=== PATIENT | male | born 1935 | race Caucasian/White ===

== ENCOUNTER 2018-04-07 10:44 | Emergency (ER) | payer MEDICARE ==
--- NOTE | 2018-04-07 11:13 | Emergency Department Record ---
History of Present Illness - General Chief Complaint: Laceration(s) Stated Complaint: R HAND/CRUSHED FINGERS Time Seen by Provider: 04/07/18 10:54 Source: Patient Mode of Arrival: Ambulatory Limitations: No limitations - History of Present Illness Initial Commments: Pt from home with neighbor. Right hand dominate with crush injury to right middle and ring finger. Laceration to same digits on palmar surface. No other injury. Hx DM. Onset/Timin -: Minutes(s) Place: Home Context: Accidental Associated Symptoms: None Treatments Prior to Arrival: Other - [place] Coma Scale Eye Response: (4) Open spontaneously Motor Response: (6) Obeys commands Verbal Response: (5) Oriented [place] Total: 15 - Related Data Hx Tetanus Toxoid Vaccination: Yes Allergies Allergy/AdvReac Type Severity Reaction Status Date / Time No Known Drug Allergies Allergy Verified 04/30/15 12:43 Travel Screening - Travel/Exposure Within Last 30 Days Have you traveled within the last 30 days?: No Review of Systems Constitutional: Denies: Chills Respiratory: Denies: Cough, Dyspnea Cardiovascular: Denies: Chest pain Gastrointestinal: Denies: Abdominal pain Musculoskeletal: Reports: As per HPI Skin: Reports: As per HPI Neurological: Denies: Abnormal gait, Confusion Past Medical History - SOCIAL HISTORY Smoking Status: Former smoker Alcohol Use: None Drug Use: None - RESPIRATORY Hx Respiratory Disorders: No - CARDIOVASCULAR Hx Cardio Disorders: Yes Hx Heart Attack: Yes - NEURO Hx Neuro Disorders: No - GI Hx GI Disorders: No - Hx Genitourinary Disorders: Yes Hx Kidney Stones: Yes - ENDOCRINE Hx Endocrine Disorders: Yes Hx Diabetes: Yes Hx Thyroid Disease: Yes (hypo) - MUSCULOSKELETAL Hx Musculoskeletal Disorders: No - PSYCH Hx Psych Problems: No Family Medical History Any Significant Family History?: No Physical Exam - General General Appearance: Alert, Oriented x3, Cooperative Limitations: No limitations - Head Head exam: Atraumatic - Eye Eye exam: Normal appearance - ENT Ear exam: Normal external inspection Nasal Exam: Normal inspection - Respiratory Respiratory exam: Normal lung sounds bilaterally - Cardiovascular Cardiovascular Exam: Regular rate, Normal rhythm - GI/Abdominal GI/Abdominal exam: Soft, Normal bowel sounds - Extremities Extremities exam: Full ROM, Normal capillary refill, Tenderness Image of Hand: 1 - laceration and swelling. Lac to 3rd and 4th digit superficial no deep structures or FB. No tendon or N/V injury +STS 2 - sensation in tact distally, full ROM against resistance - Neurological Neurological exam: Alert, Normal gait, Oriented X3 Course Vital Signs 04/07/18 10:48 Temperature 97.5 F L Pulse Rate 68 Respiratory 18 Rate Blood Pressure 161/66 Pulse Ox 99 - Reevaluation(s) Reevaluation #1: 04/07/18 11:46 Seen and examined. XR reviewed - no FB or fX. Wound repaired without difficulty. Discussed DM and higher risk for wound infection. Will monitor closely and return if sings. SO in7-10 days Reevaluation #2: 04/07/18 11:49 PROCEDURE: Procedure Note: 2 laceration over the palmar of the right fingers #3 & 4, bleeding controlled. Wound was cleaned and prepped in sterile fashion, no residual FB identified on examination. Wound was anesthetized with 2 cc of 1% lido without epi locally with good anesthesia, and the laceration was repaired with 4-0 Prolene x 3 per finger - total 6 sutures placed - sutures in interrupted fashion. Patient tolerated the procedure well without complications. Tubex dressing applied. Good CMS distally following procedure. Medical Decision Making - Management Options MDM Management: No Additional Work-up Planned - Data Complexity MDM Data: X-Ray Ordered and/or Reviewed, Independent Visualization of Image, Tracing, or Specimen Disposition Disposition: Discharge Clinical Impression: Hand crush injury Qualifiers: Encounter type: initial encounter Laterality: right Qualified Code(s): S67.21XA - Crushing injury of right hand, initial encounter Laceration of finger of right hand without damage to nail Qualifiers: Encounter type: initial encounter Finger: ring finger Foreign body presence: without foreign body Qualified Code(s): S61.214A - Laceration without foreign body of right ring finger without damage to nail, initial encounter Disposition: Home, Self-Care Return To Work/School Note Provided: Yes Condition: (1) Good Instructions: Laceration (ED) Additional Instructions: sutures out in 7-10 days Watch closely for signs of infection. Forms: Patient Portal Access Quality - Quality Measures Quality Measures: N/A - Blood Pressure Screening Does Patient Have Any of the Following: Active Dx of HTN Blood Pressure Classification: Hypertensive Reading Systolic Measurement: 161 Diastolic Measurement: 66 Screening for High Blood Pressure: Patient Exclusion, Hx of HTN [[id number]]
--- NOTE | 2018-04-07 21:05 | RADIOLOGY REPORT ---
EXAM: HAND, RIGHT 3 VIEWS HISTORY: INJURY. TECHNIQUE: Three views of the right hand were performed. FINDINGS: No evidence of fracture or dislocation. There is degenerative change of the proximal and distal interphalangeal joint space. There is degenerative change of the radioulnar joint space and radiocarpal joint space. No radiopaque foreign body. Mild soft tissue swelling. IMPRESSION: SOFT TISSUE SWELLING. NO ACUTE PROCESS. JOB NUMBER: [id number] MTDD
== END 2018-04-07 12:11 | disposition home or self-care (01) ==
LOC: ER 10:44
DX: S67.21XA Crushing injury of right hand, initial encounter (principal); S61.214A Laceration without foreign body of right ring finger without damage to nail, initial encounter; S61.212A Laceration without foreign body of right middle finger without damage to nail, initial encounter; W24.0XXA Contact with lifting devices, not elsewhere classified, initial encounter; Y92.008 Other place in unspecified non-institutional (private) residence as the place of occurrence of the external cause; E11.9 Type 2 diabetes mellitus without complications; I10 Essential (primary) hypertension; Z87.891 Personal history of nicotine dependence; I25.2 Old myocardial infarction
CPT/HCPCS: 12001; 99283; 99284

== ENCOUNTER 2018-04-16 15:20 | Emergency (ER) | payer MEDICARE ==
--- NOTE | 2018-04-16 15:25 | Emergency Department Record ---
History of Present Illness - General Chief Complaint: Suture removal Stated Complaint: REMOVE STITCHES Time Seen by Provider: 04/16/18 15:22 Source: Patient Mode of arrival: Ambulatory Limitations: No limitations - History of Present Illness Initial Comments: 82 yo male presents for wound check and suture removal. He injured the palm surface of two fingers. Complaint: Suture/staple removal, Wound re-check -: Week(s) (1) Initial Visit For: Laceration Returns Today for: Staple/stitch removal, Wound recheck Symptoms Since Prior Visit: Improved Associated Symptoms: None - Related Data Previous Rx's Medication Instructions Recorded Cephalexin [Keflex] 500 mg PO TID #21 cap 04/16/18 Allergies Allergy/AdvReac Type Severity Reaction Status Date / Time No Known Drug Allergies Allergy Verified 04/30/15 12:43 Review of Systems Constitutional: Denies: Chills, Fever, Malaise, Weakness Eyes: Denies: Eye discharge ENT: Denies: Congestion, Throat pain Respiratory: Denies: Cough Musculoskeletal: Denies: Arthralgia, Joint swelling, Myalgia Skin: Denies: Change in color, Rash Neurological: Denies: Numbness, Tingling Psychiatric: Denies: Anxiety Hematological/Lymphatic: Denies: Easy bleeding, Easy bruising Past Medical History - SOCIAL HISTORY Smoking Status: Former smoker Drug Use: None - RESPIRATORY Hx Respiratory Disorders: No - CARDIOVASCULAR Hx Cardio Disorders: Yes Hx Heart Attack: Yes - NEURO Hx Neuro Disorders: No - GI Hx GI Disorders: No - Hx Genitourinary Disorders: Yes Hx Kidney Stones: Yes - ENDOCRINE Hx Endocrine Disorders: Yes Hx Diabetes: Yes Hx Thyroid Disease: Yes (hypo) - MUSCULOSKELETAL Hx Musculoskeletal Disorders: No - PSYCH Hx Psych Problems: No Physical Exam - General General Appearance: Alert, Oriented x3, Cooperative, No acute distress Limitations: No limitations - Head Head exam: Atraumatic, Normal inspection - Eye Eye exam: Normal appearance. negative: Conjunctival injection - ENT ENT exam: Normal exam Ear exam: Normal external inspection Nasal Exam: Normal inspection Mouth exam: Normal external inspection - Neck Neck exam: Normal inspection - Extremities Extremities exam: Full ROM, Normal capillary refill, Other (mild erythema on the ring finger, intact skin, no pus). negative: Normal inspection, Tenderness - Neurological Neurological exam: Alert, Oriented X3 - Psychiatric Psychiatric exam: Normal affect, Normal mood - Skin Skin exam: Dry, Intact, Normal color, Warm Course - Reevaluation(s) Reevaluation #1: sutures removed without difficulty Given the mild erythema Keflex prescribed We discussed signs and symptoms to schedule a recheck 04/16/18 15:43 Disposition Disposition: Discharge Clinical Impression: Visit for suture removal Disposition: Home, Self-Care Condition: (1) Good Instructions: Stitches Removal (ED) Additional Instructions: Return to the ER or see your doctor if you have any ongoing concerns about the healing of your finger injuries. Prescriptions: Cephalexin [Keflex] 500 mg PO TID #21 cap Forms: Patient Portal Access Time of Disposition: 15:45 Quality - Quality Measures Quality Measures: N/A - Blood Pressure Screening Does Patient Have Any of the Following: No Blood Pressure Classification: Pre-Hypertensive BP Reading Systolic Measurement: 129 Diastolic Measurement: 52 Screening for High Blood Pressure: < Pre-Hypertensive BP, F/U Documented > [ [id number]] Pre-Hypertensive Follow-up Interventions: Referral to alternative/primary care provider.
== END 2018-04-16 15:57 | disposition home or self-care (01) ==
LOC: ER 15:20
DX: Z48.02 Encounter for removal of sutures (principal)